=== PATIENT | male | born 1995 | race Hispanic/Latino ===

== ENCOUNTER 2018-10-09 16:10 | Emergency (ER) | payer SELFPAY ==
[2018-10-09] MEDS ORDERED: predniSONE 20 MG TAB ONE (16:46)
[2018-10-09] MEDS ORDERED: FAMOTIDINE 20 MG TAB ONE (16:46)
--- NOTE | 2018-10-09 16:48 | ER ---
Nurse's Notes [facility] Name: Guille Cuenca Age: 23 yrs Sex: Male : 1995 Arrival Date: 10/09/2018 Time: 16:12 Bed 19 Private MD: Diagnosis: Urticaria Presentation: 10/09 16:19 Presenting complaint: Patient states: Itchy rash that started yesterday all over body. aj Transition of care: patient was not received from another setting of care. Onset: The symptoms/episode began/occurred suddenly. Anaphylaxis evaluation, the patient reports or I have noted the following symptoms which indicate a significant risk of anaphylaxis:. Onset of symptoms was October 09, 2018. Risk Assessment: Do you want to hurt yourself or someone else? Patient reports no desire to harm self or others. Initial Sepsis Screen: Does the patient meet any 2 criteria? No. Patient's initial sepsis screen is negative. Does the patient have a suspected source of infection? No. Patient's initial sepsis screen is negative. Care prior to arrival: None. 16:19 Method Of Arrival: Ambulatory 16:19 Acuity: NICHELLE 4 Triage Assessment: 16:23 General: Appears in no apparent distress. comfortable, Behavior is calm, cooperative, aj appropriate for age. Pain: Denies pain. Neuro: Level of Consciousness is awake, alert, obeys commands, Oriented to person, place, time, situation, Appropriate for age. Respiratory: Airway is patent Respiratory effort is even, unlabored, Respiratory pattern is regular, symmetrical. Derm: Skin is pink, warm \T\ dry. Rash noted that is itchy, red. Historical: - Allergies: 16:23 No Known Allergies; aj - Home Meds: 16:23 None [Active]; aj - PMHx: 16:23 None; aj - Immunization history:: Adult Immunizations up to date. - Social history:: Smoking status: Patient/guardian denies using tobacco. - Ebola Screening: : Patient negative for fever greater than or equal to 101.5 degrees Fahrenheit, and additional compatible Ebola Virus Disease symptoms Patient denies exposure to infectious person Patient denies travel to an Ebola-affected area in the 21 days before illness onset No symptoms or risks identified at this time. Screenin:37 Abuse screen: Denies threats or abuse. Denies injuries from another. Nutritional sv screening: No deficits noted. Tuberculosis screening: Fall Risk None identified. Assessment: 16:35 General: Appears in no apparent distress. comfortable, well developed, Behavior is sv calm, cooperative, appropriate for age. Pain: Denies pain. Neuro: Level of Consciousness is awake, alert, obeys commands, Oriented to person, place, time, situation, Moves all extremities. Full function Speech is normal. Respiratory: Airway is patent Respiratory effort is even, unlabored, Respiratory pattern is regular, symmetrical. Derm: Rash noted that is itchy, urticaria, on diffuse. Vital Signs: 16:23 BP 136 / 92; Pulse 79; Resp 20; Temp 97.5; Pulse Ox 99% on R/A; Weight 78.93 kg; Height aj 5 ft. 11 in. (180.34 cm); 16:23 Body Mass Index 24.27 (78.93 kg, 180.34 cm) aj ED Course: 16:12 Patient arrived in ED. rg4 16:17 Yadi Stout FNP-C is [facility]. kb 16:17 Logan Louie MD is Attending Physician. kb 16:22 Triage completed. aj 16:23 Arm band placed on left wrist. Patient placed in waiting room, Patient notified of wait aj time. 16:33 Yamile Wells, DAMIÁN is Primary Nurse. sv 16:37 Patient has correct armband on for positive identification. Bed in low position. Door sv closed. 17:07 No provider procedures requiring assistance completed. Patient did not have IV access sv during this emergency room visit. Administered Medications: 16:36 Drug: Pepcid 20 mg Route: PO; sv 17:00 Follow up: Response: No adverse reaction sv 16:37 Drug: predniSONE 40 mg Route: PO; sv 17:00 Follow up: Response: No adverse reaction sv Outcome: 16:48 Discharge ordered by MD. kb 17:07 Patient left the ED. sv 17:07 Discharged to home ambulatory. sv 17:07 Condition: stable 17:07 Discharge instructions given to patient, Instructed on discharge instructions, follow up and referral plans. medication usage, Demonstrated understanding of instructions, follow-up care, medications, Prescriptions given X 3. Signatures: Yadi Stout FNP-C FNP-Yamile Jeronimo RN RN sv Myers, Amanda, RN RN aj Garcia, Rubi rg4
--- NOTE | 2018-10-09 16:49 | EDPHYS ---
Physician Documentation [facility] Name: Guille Cuenca Age: 23 yrs Sex: Male : 1995 Arrival Date: 10/09/2018 Time: 16:12 Bed 19 Private MD: ED Physician Logan Louie HPI: 10/09 16:40 This 23 yrs old Male presents to ER via Ambulatory with complaints of Allergic kb Reaction. 16:40 The patient presents with rash, that is diffuse. Onset: The symptoms/episode kb began/occurred yesterday. Associated signs and symptoms: Pertinent positives: hives, Pertinent negatives: abdominal pain, Altered mental status chest pain, dysphagia, fever, headache, Light headed nausea, rash, shortness of breath, swelling, Syncope vomiting. 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 At home the patient or guardian has treated the symptoms with nothing. Severity of symptoms: At their worst the symptoms were moderate in the emergency department the symptoms are unchanged. The patient has not experienced similar symptoms in the past. The patient has not recently seen a physician. Historical: - Allergies: 16:23 No Known Allergies; aj - Home Meds: 16:23 None [Active]; aj - PMHx: 16:23 None; aj - Immunization history:: Adult Immunizations up to date. - Social history:: Smoking status: Patient/guardian denies using tobacco. - Ebola Screening: : Patient negative for fever greater than or equal to 101.5 degrees Fahrenheit, and additional compatible Ebola Virus Disease symptoms Patient denies exposure to infectious person Patient denies travel to an Ebola-affected area in the 21 days before illness onset No symptoms or risks identified at this time. ROS: 16:42 Constitutional: Negative for fever, chills, and weight loss, Cardiovascular: Negative kb for chest pain, palpitations, and edema, Respiratory: Negative for shortness of breath, cough, wheezing, and pleuritic chest pain, Abdomen/GI: Negative for abdominal pain, nausea, vomiting, diarrhea, and constipation, Back: Negative for injury and pain, : Negative for injury, bleeding, discharge, and swelling, MS/Extremity: Negative for injury and deformity, Neuro: Negative for headache, weakness, numbness, tingling, and seizure. 16:42 Skin: Positive for rash, diffusely. Exam: 16:42 Constitutional: This is a well developed, well nourished patient who is awake, alert, kb and in no acute distress. Head/Face: Normocephalic, atraumatic. Chest/axilla: Normal chest wall appearance and motion. Nontender with no deformity. No lesions are appreciated. Cardiovascular: Regular rate and rhythm with a normal S1 and S2. No gallops, murmurs, or rubs. Normal PMI, no JVD. No pulse deficits. Respiratory: Lungs have equal breath sounds bilaterally, clear to auscultation and percussion. No rales, rhonchi or wheezes noted. No increased work of breathing, no retractions or nasal flaring. Abdomen/GI: Soft, non-tender, with normal bowel sounds. No distension or tympany. No guarding or rebound. No evidence of tenderness throughout. MS/ Extremity: Pulses equal, no cyanosis. Neurovascular intact. Full, normal range of motion. Neuro: Awake and alert, GCS 15, oriented to person, place, time, and situation. Cranial nerves II-XII grossly intact. Motor strength 5/5 in all extremities. Sensory grossly intact. Cerebellar exam normal. Normal gait. 16:42 Skin: consistent with urticaria, and is diffusely located. Vital Signs: 16:23 BP 136 / 92; Pulse 79; Resp 20; Temp 97.5; Pulse Ox 99% on R/A; Weight 78.93 kg; Height aj 5 ft. 11 in. (180.34 cm); 16:23 Body Mass Index 24.27 (78.93 kg, 180.34 cm) MDM: 16:25 Patient medically screened. kb 16:42 Data reviewed: vital signs, nurses notes. Data interpreted: Pulse oximetry: on room air kb is 99 %. Interpretation: normal. Counseling: I had a detailed discussion with the patient and/or guardian regarding: the historical points, exam findings, and any diagnostic results supporting the discharge/admit diagnosis, the need for outpatient follow up, a family practitioner, to return to the emergency department if symptoms worsen or persist or if there are any questions or concerns that arise at home. Administered Medications: 16:36 Drug: Pepcid 20 mg Route: PO; sv 17:00 Follow up: Response: No adverse reaction sv 16:37 Drug: predniSONE 40 mg Route: PO; sv 17:00 Follow up: Response: No adverse reaction sv Disposition: 17:54 Co-signature as Attending Physician, Logan Louie MD. rn Disposition: 10/09/18 16:48 Discharged to Home. Impression: Urticaria. - Condition is Stable. - Discharge Instructions: Hives, [id number]. - Prescriptions for Pepcid 20 mg Oral Tablet - take 1 tablet by ORAL route every 12 hours for 5 days; 10 tablet. Prednisone 20 mg Oral Tablet - take 1 tablet by ORAL route once daily for 5 days; 5 tablet. - Medication Reconciliation Form, Thank You Letter, Antibiotic Education, Prescription Opioid Use form. - Follow up: Emergency Department; When: As needed; Reason: Worsening of condition. Follow up: Private Physician; When: 2 - 3 days; Reason: Recheck today's complaints, Continuance of care, Re-evaluation by your physician. Signatures: Yadi Stout, IBIS-C IBIS-Yamile Jeronimo RN RN sv Myers, Amanda, RN RN aj Nieto, Roman, MD MD assessment rn: (The following items were deleted from the chart) 17:07 16:48 10/09/2018 16:48 Discharged to Home. Impression: Urticaria. Condition is Stable. sv Forms are Medication Reconciliation Form, Thank You Letter, Antibiotic Education, Prescription Opioid Use. Follow up: Emergency Department; When: As needed; Reason: Worsening of condition. Follow up: Private Physician; When: 2 - 3 days; Reason: Recheck today's complaints, Continuance of care, Re-evaluation by your physician. kb
== END 2018-10-09 17:07 | disposition home or self-care (01) ==
LOC: ER 16:10
DX: L50.9 Urticaria, unspecified (principal)
CPT/HCPCS: 99283; J7512

== ENCOUNTER 2020-08-30 11:29 | Emergency (ER) | payer SELFPAY ==
--- NOTE | 2020-08-30 15:03 | ER ---
Nurse's Notes [facility] Name: Guille Cuenca Age: 25 yrs Sex: Male : 1995 Arrival Date: 08/30/2020 Time: 11:31 Bed 30 Private MD: Diagnosis: Presentation: 08/30 12:50 Chief complaint: Patient states: Abscess LL tooth x 2 weeks. Lips feels numb now, ca1 swelling and pain on L side of face. Coronavirus screen: Client denies travel out of the [place] in the last 14 days. At this time, the client does not indicate any symptoms associated with coronavirus-19. Ebola Screen: Patient negative for fever greater than or equal to 101.5 degrees Fahrenheit, and additional compatible Ebola Virus Disease symptoms Patient denies exposure to infectious person. Patient denies travel to an Ebola-affected area in the 21 days before illness onset. No symptoms or risks identified at this time. Initial Sepsis Screen: Does the patient meet any 2 criteria? No. Patient's initial sepsis screen is negative. Does the patient have a suspected source of infection? No. Patient's initial sepsis screen is negative. Risk Assessment: Do you want to hurt yourself or someone else? Patient reports no desire to harm self or others. Onset of symptoms was August 30, 2020. 12:50 Method Of Arrival: Ambulatory ca1 12:50 Acuity: NICHELLE 4 ca1 Historical: - Allergies: 12:52 No Known Allergies; ca1 - Home Meds: 12:52 None [Active]; ca1 - PMHx: 12:52 None; ca1 - Immunization history:: Adult Immunizations up to date, Flu vaccine is not up to date. - Social history:: Smoking status: Patient reports the use of cigarette tobacco products, denies chronic smoking, but will smoke occasionally. Vital Signs: 12:50 BP 137 / 96; Pulse 61; Resp 16 S; Temp 98.1(TE); Pulse Ox 97% on R/A; Weight 79.38 kg ca1 (R); Height 5 ft. 11 in. (180.34 cm) (R); Pain 7/10; 12:50 Body Mass Index 24.41 (79.38 kg, 180.34 cm) ca1 ED Course: 11:31 Patient arrived in ED. as 12:51 Triage completed. ca1 12:52 Arm band placed on right wrist. ca1 15:02 Kelly Oscar, RN is Primary Nurse. iw 15:02 Chon Huerta PA is PHCP. cp 15:02 Logan Louie MD is Attending Physician. cp Administered Medications: No medications were administered Outcome: 15:02 Eloped iw 15:03 Patient left the ED. iw Signatures: Kimi Purvis as Kelly Oscar, RN RN iw Chon Huerta PA PA cp Colette Dempsey RN RN ca1 Corrections: (The following items were deleted from the chart) 12:53 12:50 Resp 16bpm; Spontaneous; 79.38 kg Reported; Height 5 ft. 11 in. Reported; BMI: ca1 24.4; Pain 7/10; ca1
[2020-08-30 15:07] VITALS: BP 137/96; TEMP 98.1; O2SAT 97
== END 2020-08-30 15:03 | disposition left against medical advice (07) ==
LOC: ER 11:29
DX: Z53.21 Procedure and treatment not carried out due to patient leaving prior to being seen by health care provider (principal)
CPT/HCPCS: 99281

== ENCOUNTER 2020-08-31 18:42 | Emergency (ER) | payer SELFPAY ==
--- NOTE | 2020-08-31 21:12 | EDPHYS ---
Physician Documentation [facility] Name: Guille Cuenca Age: 25 yrs Sex: Male : 1995 Arrival Date: 08/31/2020 Time: 18:45 Bed 28 Private MD: ED Physician Chon Stallings HPI: 08/31 21:06 This 25 yrs old Male presents to ER via Ambulatory with complaints of cp Toothache. 21:06 The patient presents with pain. The problem is located in the left lower jaw. Onset: cp The symptoms/episode began/occurred 3 week(s) ago. Duration: The symptoms are continuous, and are steadily getting worse. 21:06 Associated signs and symptoms: Pertinent negatives: dysphagia, fever, inability to eat. cp Severity of symptoms: in the emergency department the symptoms are unchanged, despite home interventions. Historical: - Allergies: 19:04 No Known Allergies; ll1 - PMHx: 19:04 pectus exavatum; ll1 19:05 scoliosis; ll1 - PSHx: 19:05 Appendectomy; ll1 - Immunization history:: Flu vaccine is not up to date. - Social history:: Smoking status: Patient reports the use of cigarette tobacco products, denies chronic smoking, but will smoke occasionally. ROS: 21:07 Constitutional: Negative for body aches, chills, fever, poor PO intake. cp 21:07 ENT: Positive for dental pain, Negative for ear pain, sore throat, difficulty cp swallowing, difficulty handling secretions. 21:07 Respiratory: Negative for cough, shortness of breath, wheezing. 21:07 Abdomen/GI: Negative for abdominal pain, nausea, vomiting, and diarrhea. 21:07 Skin: Negative for rash. 21:07 Neuro: Negative for altered mental status, headache. 21:07 All other systems are negative. Exam: 21:07 Constitutional: The patient appears in no acute distress, alert, awake, non-toxic, well cp developed, well nourished. 21:07 Head/face: Noted is swelling, that is mild, of the left lower jaw. 21:07 ENT: External ear(s): are unremarkable, Nose: is normal, Mouth: Lips: moist, Oral mucosa: moist, Posterior pharynx: Airway: no evidence of obstruction, patent, Tonsils: are normal in appearance, Dental exam: abscess, is not appreciated, dental caries, that is moderate, diffusely, pain, that is mild, specifically in the lower left second bicuspid (#20), Voice: is normal. 21:07 Neck: ROM/movement: is normal, is supple, without pain, no range of motions limitations. 21:07 Chest/axilla: Inspection: normal. 21:07 Cardiovascular: Rate: bradycardic, Rhythm: regular. cp 21:07 Respiratory: the patient does not display signs of respiratory distress, Respirations: normal, no use of accessory muscles, labored breathing, is not present. 21:07 Skin: no rash present. Vital Signs: 19:05 BP 124 / 70; Pulse 69; Resp 17; Temp 98.5; Pulse Ox 99% ; Weight 79.38 kg; Height 5 ft. ll1 11 in. (180.34 cm); Pain 6/10; 20:33 BP 99 / 60 LA (auto/reg); Pulse 54; Pulse Ox 100% on R/A; Pain 6/10; jp3 19:05 Body Mass Index 24.41 (79.38 kg, 180.34 cm) ll1 MDM: 20:42 Patient medically screened. cp 21:10 Differential diagnosis: dental caries, dental abscess, pericoronitis. cp 21:10 Data reviewed: vital signs, nurses notes, and as a result, I will discharge patient. cp Counseling: I had a detailed discussion with the patient and/or guardian regarding: the historical points, exam findings, and any diagnostic results supporting the discharge/admit diagnosis, the need for outpatient follow up, for definitive care, a dentist, to return to the emergency department if symptoms worsen or persist or if there are any questions or concerns that arise at home. Administered Medications: 21:11 Drug: Ibuprofen 800 mg Route: PO; sg 21:43 Follow up: Response: No adverse reaction sg 21:12 Drug: Clindamycin 600 mg Route: PO; sg 21:20 Follow up: Response: No adverse reaction sg Disposition: 21:25 Chart complete. cp 22:50 Co-signature as Attending Physician, Chon Stallings MD I agree with the assessment and khurram plan of care. Disposition: 08/31/20 21:10 Discharged to Home. Impression: Disorder of teeth and supporting structures, unspecified. - Condition is Stable. - Discharge Instructions: Dental Pain. - Prescriptions for Clindamycin HCl 300 mg Oral Capsule - take 1 capsule by ORAL route every 6 hours for 10 days; 40 capsule. Ibuprofen 800 mg Oral Tablet - take 1 tablet by ORAL route every 8 hours As needed take with food; 30 tablet. - Work release form, Medication Reconciliation Form, Thank You Letter, Antibiotic Education, Prescription Opioid Use form. - Follow up: Private Physician; When: 2 - 3 days; Reason: Recheck today's complaints. - Problem is new. - Symptoms have improved. Signatures: Prashanth Liz RN RN Chon Machado MD MD cha Page, Corey, PA PA cp Jessica Vieira RN RN ll1 Corrections: (The following items were deleted from the chart) 21:21 21:10 08/31/2020 21:10 Discharged to Home. Impression: Disorder of teeth and supporting sg structures, unspecified. Condition is Stable. Forms are Medication Reconciliation Form, Thank You Letter, Antibiotic Education, Prescription Opioid Use. Follow up: Private Physician; When: 2 - 3 days; Reason: Recheck today's complaints. Problem is new. Symptoms have improved. cp
--- NOTE | 2020-08-31 21:12 | ER ---
Nurse's Notes [facility] Name: Guille Cuenca Age: 25 yrs Sex: Male : 1995 Arrival Date: 08/31/2020 Time: 18:45 Bed 28 Private MD: Diagnosis: Disorder of teeth and supporting structures, unspecified Presentation: 08/31 19:05 Chief complaint: Patient states: Left lower jaw pain and swelling for 2 days. No fever. ll1 Lower jaw is swollen on the outside. Coronavirus screen: Client denies travel out of the [place] in the last 14 days. At this time, the client does not indicate any symptoms associated with coronavirus-19. Ebola Screen: Patient denies travel to an Ebola-affected area in the 21 days before illness onset. Initial Sepsis Screen: Does the patient meet any 2 criteria? No. Patient's initial sepsis screen is negative. Does the patient have a suspected source of infection? Yes: Other: teeth. Risk Assessment: Do you want to hurt yourself or someone else? Patient reports no desire to harm self or others. Onset of symptoms was August 30, 2020. 19:05 Method Of Arrival: Ambulatory ll1 19:05 Acuity: NICHELLE 4 ll1 Historical: - Allergies: 19:04 No Known Allergies; ll1 - PMHx: 19:04 pectus exavatum; ll1 19:05 scoliosis; ll1 - PSHx: 19:05 Appendectomy; ll1 - Immunization history:: Flu vaccine is not up to date. - Social history:: Smoking status: Patient reports the use of cigarette tobacco products, denies chronic smoking, but will smoke occasionally. Screenin:35 Abuse screen: Denies threats or abuse. Denies injuries from another. Nutritional sg screening: No deficits noted. Tuberculosis screening: No symptoms or risk factors identified. Never had TB. Fall Risk None identified. Assessment: 20:35 General: Appears in no apparent distress. well groomed, well developed, well nourished, sg Behavior is calm, cooperative, appropriate for age. Pain: Complains of pain in right jaw Quality of pain is described as aching. Neuro: Level of Consciousness is awake, alert, obeys commands, Oriented to person, place, time, Speech is normal, Facial symmetry appears normal. Cardiovascular: Patient's skin is warm and dry. Chest pain is denied. Respiratory: Airway is patent Respiratory effort is even, unlabored, Respiratory pattern is regular, symmetrical. GI: No signs and/or symptoms were reported involving the gastrointestinal system. : No signs and/or symptoms were reported regarding the genitourinary system. Derm: Skin is pink, warm \T\ dry. Musculoskeletal: Circulation, motion, and sensation intact. Range of motion: intact in all extremities. Vital Signs: 19:05 BP 124 / 70; Pulse 69; Resp 17; Temp 98.5; Pulse Ox 99% ; Weight 79.38 kg; Height 5 ft. ll1 11 in. (180.34 cm); Pain 6/10; 20:33 BP 99 / 60 LA (auto/reg); Pulse 54; Pulse Ox 100% on R/A; Pain 6/10; jp3 19:05 Body Mass Index 24.41 (79.38 kg, 180.34 cm) ll1 ED Course: 18:45 Patient arrived in ED. rg4 19:04 Arm band placed on. ll1 19:06 Triage completed. ll1 20:33 Call light in reach. Verbal reassurance given. Pulse ox on. NIBP on. jp3 20:33 Patient maintains SpO2 saturation greater than 95% on room air. jp3 20:38 [facility]. cp 20:38 Chon Stallings MD is Attending Physician. cp 20:54 Prashanth Liz RN is Primary Nurse. sg 21:10 No provider procedures requiring assistance completed. Patient did not have IV access sg during this emergency room visit. Administered Medications: 21:11 Drug: Ibuprofen 800 mg Route: PO; sg 21:43 Follow up: Response: No adverse reaction sg 21:12 Drug: Clindamycin 600 mg Route: PO; sg 21:20 Follow up: Response: No adverse reaction sg Outcome: 21:10 Discharge ordered by MD. cp 21:10 Discharged to home ambulatory, with family. sg 21:10 Condition: good 21:10 Discharge instructions given to patient, Instructed on discharge instructions, follow up and referral plans. no drinking with medication, no driving heavy equipment, medication usage, safety practices, Demonstrated understanding of instructions, follow-up care, medications, Prescriptions given X 2. 21:21 Patient left the ED. sg Signatures: Prashanth Liz RN RN sg Page, Corey, PA PA cp Garcia, Trish rg4 Nathan Jovel jp3 Jessica Vieira, RN RN ll1
[2020-08-31] MEDS ORDERED: IBUPROFEN 400 MG TAB ONE (21:27)
[2020-08-31 21:37] VITALS: TEMP 98.5
[2020-08-31 21:39] VITALS: BP 99/60; O2SAT 100
== END 2020-08-31 21:21 | disposition home or self-care (01) ==
LOC: ER 18:42
DX: K08.89 Other specified disorders of teeth and supporting structures (principal); F17.210 Nicotine dependence, cigarettes, uncomplicated
CPT/HCPCS: 99284

== ENCOUNTER 2022-01-29 22:38 | Emergency (ER) | payer SELFPAY ==
--- NOTE | 2022-01-29 23:27 | ER ---
Nurse's Notes [facility] Name: Guille Cuenca Age: 26 yrs Sex: Male : 1995 Arrival Date: 01/29/2022 Time: 22:42 Bed 5 Private MD: Diagnosis: Pain in right knee Presentation: 01/29 22:44 Chief complaint: Patient states: I was at a concert tonight and someone fell on top of ld1 my leg. C/O right knee pain. Pt reports hearing hearing several loud pops in right knee. Coronavirus screen: At this time, the client does not indicate any symptoms associated with coronavirus-19. Ebola Screen: No symptoms or risks identified at this time. Initial Sepsis Screen: Does the patient meet any 2 criteria? No. Patient's initial sepsis screen is negative. Does the patient have a suspected source of infection? No. Patient's initial sepsis screen is negative. Risk Assessment: Do you want to hurt yourself or someone else? Patient reports no desire to harm self or others. Onset of symptoms was January 29, 2022. 22:44 Method Of Arrival: Ambulatory ld1 22:44 Acuity: NICHELLE 4 ld1 Triage Assessment: 22:46 General: Appears in no apparent distress. comfortable, Behavior is calm, cooperative, ld1 appropriate for age. Pain: Complains of pain in right leg Pain does not radiate. Pain currently is 8 out of 10 on a pain scale. EENT: No signs and/or symptoms were reported regarding the EENT system. Neuro: Level of Consciousness is awake, alert, obeys commands, Oriented to person, place, time, situation. Cardiovascular: Capillary refill < 3 seconds Patient's skin is warm and dry. Respiratory: Airway is patent Respiratory effort is even, unlabored. GI: Abdomen is flat, non-distended. : No signs and/or symptoms were reported regarding the genitourinary system. Derm: No signs and/or symptoms reported regarding the dermatologic system. Musculoskeletal: Reports pain in right leg. Historical: - Allergies: 22:46 No Known Allergies; ld1 - PMHx: 22:46 pectus exavatum; scoliosis; ld1 - PSHx: 22:46 None; ld1 - Immunization history:: Adult Immunizations up to date, Client reports having NOT received the Covid vaccine. - Social history:: Smoking status: Patient reports the use of cigarette tobacco products, smokes one-half pack cigarettes per day, Patient uses alcohol, occasionally. - Family history:: not pertinent. - Hospitalizations: : No recent hospitalization is reported. Screenin:04 Abuse screen: Denies threats or abuse. Nutritional screening: No deficits noted. jb4 Tuberculosis screening: No symptoms or risk factors identified. Fall Risk None identified. Assessment: 23:03 General: Appears in no apparent distress. comfortable, Behavior is calm, cooperative, jb4 appropriate for age. Pain: Complains of pain in right leg Pain does not radiate. Pain currently is 8 out of 10 on a pain scale. Neuro: Level of Consciousness is awake, alert, obeys commands, Oriented to person, place, time, situation. Cardiovascular: Patient's skin is warm and dry. Respiratory: Airway is patent Respiratory effort is even, unlabored, Respiratory pattern is regular, symmetrical. GI: No signs and/or symptoms were reported involving the gastrointestinal system. : No signs and/or symptoms were reported regarding the genitourinary system. EENT: No signs and/or symptoms were reported regarding the EENT system. Derm: Skin is intact, Skin is pink, warm \T\ dry. Musculoskeletal: Circulation, motion, and sensation intact. Range of motion: intact in all extremities. Vital Signs: 22:44 BP 134 / 81; Pulse 80; Resp 18; Temp 97.6(TE); Pulse Ox 99% on R/A; Weight 92.99 kg; ld1 Height 5 ft. 11 in. (180.34 cm); Pain 8/10; 22:44 Body Mass Index 28.59 (92.99 kg, 180.34 cm) ld1 ED Course: 22:42 Patient arrived in ED. bp1 22:46 Triage completed. ld1 22:46 Arm band placed on right wrist. ld1 22:49 Gadiel Head RN is Primary Nurse. jb4 22:51 Logan Louie MD is Attending Physician. rn 23:04 Patient has correct armband on for positive identification. Bed in low position. Call jb4 light in reach. Side rails up X 1. Client placed on continuous cardiac and pulse oximetry monitoring. NIBP monitoring applied. 23:25 Enoch Chambers MD is Referral Physician. rn 23:26 No provider procedures requiring assistance completed. Patient did not have IV access jb4 during this emergency room visit. Administered Medications: No medications were administered Outcome: : Discharge ordered by . rn 23:26 Discharged to home via wheelchair, with friend. jb4 : Condition: stable 23:26 Discharge instructions given to Left prior to receiving discharge packet. 23:26 Patient left the ED. jb4 Signatures: Logan Louie MD MD rn Bryson, James, RN RN jb4 Didi Martin Lauren, RN RN ld1
--- NOTE | 2022-01-29 23:27 | EDPHYS ---
Physician Documentation [facility] Name: Guille Cuenca Age: 26 yrs Sex: Male : 1995 Arrival Date: 01/29/2022 Time: 22:42 Bed 5 Private MD: ED Physician Logan Louie HPI: 01/29 23:19 This 26 yrs old Male presents to ER via Ambulatory with complaints of Leg rn Injury. 23:19 The patient presents with decreased range of motion, an injury, pain. The complaints rn affect the right knee. Onset: The symptoms/episode began/occurred just prior to arrival. Modifying factors: The symptoms are alleviated by elevating leg, remaining still, the symptoms are aggravated by movement, weight bearing, bending knee. Associated signs and symptoms: Pertinent negatives fever, numbness, tingling, warmth, weakness. Severity of symptoms: At their worst the symptoms were moderate, in the emergency department the symptoms are unchanged. The patient has not experienced similar symptoms in the past. The patient has not recently seen a physician. Pt reports was at concert, 2 men fell onto his leg as he was standing, heard 2 pops, can only limp on right leg at level of knee. Reports only medial right knee hurts. No swelling. No discoloration. Has never injured that knee before. . Historical: - Allergies: 22:46 No Known Allergies; ld1 - PMHx: 22:46 pectus exavatum; scoliosis; ld1 - PSHx: 22:46 None; ld1 - Immunization history:: Adult Immunizations up to date, Client reports having NOT received the Covid vaccine. - Social history:: Smoking status: Patient reports the use of cigarette tobacco products, smokes one-half pack cigarettes per day, Patient uses alcohol, occasionally. - Family history:: not pertinent. - Hospitalizations: : No recent hospitalization is reported. ROS: 23:19 Constitutional: Negative for fever, chills, and weight loss, MS/Extremity: + injury and rn pain to right knee Skin: Negative for injury, rash, and discoloration, Neuro: Negative for weakness, numbness, tingling Exam: 23:22 Constitutional: This is a well developed, well nourished patient who is awake, alert, rn appears uncomfortable, firend helping him to and from restroom MS/ Extremity: Pulses equal, no cyanosis. Neurovascular intact. Painful ROM right knee with tenderness medial right knee. No bony tenderness of patella/femur/proximal tib/fib. Vital Signs: 22:44 BP 134 / 81; Pulse 80; Resp 18; Temp 97.6(TE); Pulse Ox 99% on R/A; Weight 92.99 kg; ld1 Height 5 ft. 11 in. (180.34 cm); Pain 8/10; 22:44 Body Mass Index 28.59 (92.99 kg, 180.34 cm) ld1 MDM: 22:51 Patient medically screened. rn 23:04 Refusal of service: The patient/guardian displays adequate decision making capability rn and despite a detailed discussion of alternatives, benefits, risks, and consequences refuses: all X-rays. 23:22 Differential diagnosis: closed fracture, sprain/strain. Data reviewed: vital signs, rn nurses notes, and as a result, I will discharge patient. Counseling: I had a detailed discussion with the patient and/or guardian regarding: the historical points, exam findings, and any diagnostic results supporting the discharge/admit diagnosis, the need for outpatient follow up, to return to the emergency department if symptoms worsen or persist or if there are any questions or concerns that arise at home. Response to treatment: the patient's symptoms have mildly improved after treatment, and as a result, I will discharge patient. Special discussion: I discussed with the patient/guardian in detail that at this point there is no indication for admission to the hospital. It is understood, however, that if the symptoms persist or worsen the patient needs to return immediately for re-evaluation. Further emergent ED testing is not indicated at this point in time. I discussed with the patient/guardian in detail the need to arrange with the PCP or specialist further outpatient testing, MRI, Based on the history and exam findings, there is no indication for further emergent testing or inpatient evaluation. I discussed with the patient/guardian the need to see the orthopedic surgeon for further evaluation of the symptoms. ED course: Explained to patient that most likely has ligamentous injury and possible meniscus injury due to medial force on knee while leg planted. Also explained may have fracture. Patient refuses xray, states "knows it is not broken". When explained that we do not have MRI availability currently, he requests brace and states he is going home and will f/u for MRI. Friend is in room also convincing him to leave and not "waste money" on xray. Understands risks of leaving without further evaluation. Also refuses crutches. . 01/29 23:04 Order name: Knee Immobilizer; Complete Time: 23:20 rn Administered Medications: No medications were administered Disposition Summary: 01/29/22 23:26 Discharge Ordered Location: Home rn Problem: new rn Symptoms: have improved rn Condition: Stable rn Diagnosis - Pain in right knee rn Followup: rn - With: Enoch Chambers MD - When: As needed - Reason: Recheck today's complaints, Re-evaluation by your physician Discharge Instructions: - Discharge Summary Sheet rn - Joint Pain rn - Acute Knee Pain, Adult rn Forms: - Medication Reconciliation Form rn - Thank You Letter rn - Antibiotic nurse extern - Prescription Opioid Use rn Signatures: Dispatcher [employer] Logan Birmingham MD MD rn Dibbern, Lauren, RN RN ld1 Corrections: (The following items were deleted from the chart) 23:14 22:48 Knee Right 3 View+RAD.RAD.[email or web address] ordered. EDIN EDMS
[2022-01-29 23:39] VITALS: BP 134/81; TEMP 97.6; O2SAT 99
== END 2022-01-29 23:26 | disposition home or self-care (01) ==
LOC: ER 22:38
DX: M25.561 Pain in right knee (principal); F17.210 Nicotine dependence, cigarettes, uncomplicated
CPT/HCPCS: 99281